=== PATIENT | female | born 1955 | race American Indian/Alaskan Native ===

== ENCOUNTER 2017-05-30 09:41 | Outpatient (CLI) | payer OTHER ==
[2017-05-30 10:23] LABS: Hematocrit 39.6 % (30.3-42.9); Hemoglobin 13.6 gm/dl (10.1-14.3); Mean Corpuscular HGB Conc 34 % (30-34); Mean Corpuscular Hemoglobin 29 pg (28-32); Mean Corpuscular Volume 85 fl (79-97); Platelet Count 257 K/mm3 (140-440); Red Blood Count 4.67 M/mm3 (3.65-5.03); Red Cell Distribution Width 13.7 % (13.2-15.2); White Blood Count 5.4 K/mm3 (4.5-11.0)
[2017-05-30 10:40] LABS: Alanine Aminotransferase 17 units/L (7-56); Albumin 4.2 g/dL (3.9-5); Albumin/Globulin Ratio 1.5 %; Alkaline Phosphatase 61 units/L (35-129); Anion Gap 19 mmol/L; BUN/Creatinine Ratio 22; Blood Urea Nitrogen 11 mg/dL (7-17); Calcium 9.4 mg/dL (8.4-10.2); Carbon Dioxide 24 mmol/L (22-30); Chloride 100.4 mmol/L (98-107); Glucose 120 mg/dL (65-100); Potassium 3.1 mmol/L (3.6-5.0); Sodium 140 mmol/L (137-145)
--- NOTE | 2017-05-30 10:50 | XRay Report ---
BILATERAL WRISTS, 4 VIEWS History: Bilateral carpal tunnel syndrome. Findings: Bone mineralization is within normal limits. There are mild osteoarthritic changes in both wrists. There is no evidence for fracture, dislocation, ligamentous injury or bone lesion. The soft tissues are unremarkable. Impression: Mild osteoarthritic changes.
[2017-05-30 11:09] LABS: Erythrocyte Sedimentation Rate 10 mm/Hr (0-20)
[2017-06-06 13:27] LABS: Vitamin D, 25-OH, Total 43 ng/mL (30-100)
== END 2017-05-30 09:42 | disposition home or self-care (01) ==
LOC: XRAY 09:41
PROVIDERS: ATTEND Specialist
DX: G56.03 Carpal tunnel syndrome, bilateral upper limbs (principal); M19.032 Primary osteoarthritis, left wrist; M19.031 Primary osteoarthritis, right wrist
CPT/HCPCS: 36415; 80053; 82164; 82306; 82607; 83036; 83921; 84443; 85027; 85652; 86038; 86225; 86334; 86592; 86618